=== PATIENT | male | born 2000 | race Caucasian/White ===

== ENCOUNTER 2022-04-22 09:27 | Emergency (ER) | payer MEDICAID ==
[~2022-04-22] VITALS: Ht 167.6 cm; Wt 66.0 kg
[~2022-04-22 09:27] MED LIST: ALBU108A5 IN; AZIT500T66 PO
[2022-04-22 10:14] LABS: Basophils # (auto) 0.1 10 ^3/uL (0-0.2); Basophils % (auto) 0.6 % (0.0-2.0); Eosinophils # (auto) 0 10 ^3/uL (0-0.8); Eosinophils % (auto) 0.2 % (0.0-7.0); Hematocrit 45.2 % (41.0-53.0); Hemoglobin 15.8 g/dL (13.5-17.5); Lymphocytes # (auto) 1.3 10 ^3/uL (0.4-5.4); Lymphocytes % (auto) 11.8 % (10.0-50.0); Mean Corpuscular Hemoglobin 30.3 pg (28.0-32.0); Mean Corpuscular Hgb Conc. 34.9 g/dL (32.0-36.0); Mean Corpuscular Volume 86.8 fL (80.0-100.0); Monocytes # (auto) 0.5 10 ^3/uL (0-1.3); Neutrophils % (auto) 82.4 % (37.0-80.0); Red Blood Cells 5.21 10^6/uL (4.5-5.90); White Blood Cell 10.9 10^3/uL (4.4-10.8)
[2022-04-22 10:34] LABS: Albumin 4.5 g/dL (3.4-5.0); BUN/Creatinine Ratio 9.8; Potassium 4.2 mmol/L (3.5-5.1)
[2022-04-22 10:36] LABS: Bilirubin, Total 0.3 mg/dL (0.2-1.0); Total Protein 7.5 g/dL (6.4-8.2)
[2022-04-22 12:15] VITALS: BP 126/75
[2022-04-22 12:51] LABS: Alcohol, Urine < 3.0 mg/dL (0-10); Cannabinoid Screen, Urine NEGATIVE (NEGATIVE)
[2022-04-22 12:59] LABS: Amphetamine Screen, Urine POSITIVE (NEGATIVE); Barbiturate Scree,Urine NEGATIVE (NEGATIVE); Benzodiazephine Screen, Urine NEGATIVE (NEGATIVE); Cocaine Screen, Urine NEGATIVE (NEGATIVE); Opiate Scree,Urine NEGATIVE (NEGATIVE); Phencyclidine Screen, Urine NEGATIVE (NEGATIVE)
== END 2022-04-22 12:17 | disposition home or self-care (01) ==
LOC: ER 09:27
DX: F15.10 Other stimulant abuse, uncomplicated (principal); F12.10 Cannabis abuse, uncomplicated; J45.909 Unspecified asthma, uncomplicated; Z79.2 Long term (current) use of antibiotics; Z79.899 Other long term (current) drug therapy
CPT/HCPCS: 36415; 80053; 80307; 84484; 85025; 93005

== ENCOUNTER 2022-05-17 00:21 | Emergency (ER) | payer MEDICAID ==
[~2022-05-17] VITALS: Ht 167.6 cm; Wt 65.9 kg
[2022-05-17 00:39] VITALS: BP 97/76
[2022-05-17 00:47] LABS: Basophils # (auto) 0.1 10 ^3/uL (0-0.2); Basophils % (auto) 0.6 % (0.0-2.0); Eosinophils # (auto) 0.1 10 ^3/uL (0-0.8); Eosinophils % (auto) 0.7 % (0.0-7.0); Hematocrit 42.8 % (41.0-53.0); Hemoglobin 15.5 g/dL (13.5-17.5); Lymphocytes % (auto) 14.6 % (10.0-50.0); Mean Corpuscular Hemoglobin 30.6 pg (28.0-32.0); Mean Corpuscular Hgb Conc. 36.1 g/dL (32.0-36.0); Mean Corpuscular Volume 84.6 fL (80.0-100.0); Monocytes % (auto) 7.3 % (0.0-12.0); Neutrophils # (auto) 10.3 10 ^3/uL (1.6-8.6); Neutrophils % (auto) 76.8 % (37.0-80.0); Nucleated Red Blood Cells % 0.1 %; Red Blood Cells 5.05 10^6/uL (4.5-5.90); Red Cell Distribution Width 13.1 % (11.8-14.3); White Blood Cell 13.5 10^3/uL (4.4-10.8)
[2022-05-17 01:02] LABS: Albumin 4.2 g/dL (3.4-5.0); BUN/Creatinine Ratio 16.7 (10.0-20.0); Calcium 9.6 mg/dL (8.5-10.1); Potassium 4.7 mmol/L (3.5-5.1)
[2022-05-17 01:05] LABS: Bilirubin, Total 0.5 mg/dL (0.2-1.0); Total Protein 7.4 g/dL (6.4-8.2)
== END 2022-05-17 03:36 | disposition home or self-care (01) ==
LOC: ER 00:21
DX: R07.89 Other chest pain (principal); F19.10 Other psychoactive substance abuse, uncomplicated; F12.10 Cannabis abuse, uncomplicated; F14.10 Cocaine abuse, uncomplicated
CPT/HCPCS: 36415; 71045; 80053; 83880; 84484; 85025; 93005

== ENCOUNTER 2022-05-27 12:05 | Emergency (ER) | payer MEDICAID ==
[~2022-05-27] VITALS: Ht 167.6 cm; Wt 67.5 kg
[2022-05-27 12:44] VITALS: BP 119/86
[2022-05-27 15:45] LABS: Basophils # (auto) 0.1 10 ^3/uL (0-0.2); Basophils % (auto) 1.1 % (0.0-2.0); Eosinophils # (auto) 0 10 ^3/uL (0-0.8); Eosinophils % (auto) 0.3 % (0.0-7.0); Hematocrit 46.3 % (41.0-53.0); Hemoglobin 16.4 g/dL (13.5-17.5); Lymphocytes # (auto) 1.7 10 ^3/uL (0.4-5.4); Lymphocytes % (auto) 21.9 % (10.0-50.0); Mean Corpuscular Hemoglobin 30.1 pg (28.0-32.0); Mean Corpuscular Hgb Conc. 35.4 g/dL (32.0-36.0); Monocytes # (auto) 0.6 10 ^3/uL (0-1.3); Neutrophils # (auto) 5.4 10 ^3/uL (1.6-8.6); Neutrophils % (auto) 68.7 % (37.0-80.0); Nucleated Red Blood Cells % 0.8 %; Red Blood Cells 5.45 10^6/uL (4.5-5.90); Red Cell Distribution Width 13.2 % (11.8-14.3); White Blood Cell 7.8 10^3/uL (4.4-10.8)
[2022-05-27 16:05] LABS: Potassium 4.1 mmol/L (3.5-5.1)
[2022-05-27 16:09] LABS: Albumin 4.5 g/dL (3.4-5.0); BUN/Creatinine Ratio 14.9 (10.0-20.0)
[2022-05-27 16:11] LABS: Bilirubin, Total 0.6 mg/dL (0.2-1.0); Total Protein 7.8 g/dL (6.4-8.2)
[2022-05-27] MEDS ORDERED: ACET-6 PO (16:47)
[2022-05-27] MEDS ORDERED: FAMO20TA10 PO (16:47)
== END 2022-05-27 16:48 | disposition home or self-care (01) ==
LOC: ER 12:05
DX: R51.9 Headache, unspecified (principal); B34.9 Viral infection, unspecified; F12.10 Cannabis abuse, uncomplicated; F14.10 Cocaine abuse, uncomplicated; J45.909 Unspecified asthma, uncomplicated
CPT/HCPCS: 36415; 71045; 80053; 84484; 85025

== ENCOUNTER 2022-05-30 12:05 | Emergency (ER) | payer MEDICAID ==
[~2022-05-30] VITALS: Ht 167.6 cm; Wt 66.4 kg
[~2022-05-30 12:05] MED LIST changes: +ACET-6 PO; +FAMO20TA10 PO
[2022-05-30 12:54] VITALS: BP 124/76
[2022-05-30] MEDS ORDERED: HYDR50CA PO (13:44)
== END 2022-05-30 13:45 | disposition home or self-care (01) ==
LOC: ER 12:05
DX: F41.1 Generalized anxiety disorder (principal); R00.2 Palpitations; F12.10 Cannabis abuse, uncomplicated; F14.10 Cocaine abuse, uncomplicated; J45.909 Unspecified asthma, uncomplicated; Z88.6 Allergy status to analgesic agent

== ENCOUNTER 2023-08-12 09:45 | Emergency (ER) | payer MEDICAID ==
[~2023-08-12] VITALS: Ht 170.2 cm; Wt 80.0 kg
[~2023-08-12 09:45] MED LIST changes: +HYDR50CA PO
[2023-08-12 10:00] LABS: Basophils # (auto) 0.1 10 ^3/uL (0-0.2); Basophils % (auto) 0.9 % (0.0-2.0); Eosinophils # (auto) 0.1 10 ^3/uL (0-0.8); Eosinophils % (auto) 0.8 % (0.0-7.0); Hematocrit 45.1 % (41.0-53.0); Hemoglobin 15.5 g/dL (13.5-17.5); Lymphocytes # (auto) 2.9 10 ^3/uL (0.4-5.4); Lymphocytes % (auto) 21.6 % (10.0-50.0); Mean Corpuscular Hemoglobin 29.3 pg (28.0-32.0); Mean Corpuscular Hgb Conc. 34.4 g/dL (32.0-36.0); Mean Corpuscular Volume 85.1 fL (80.0-100.0); Monocytes # (auto) 0.9 10 ^3/uL (0-1.3); Monocytes % (auto) 6.8 % (0.0-12.0); Neutrophils # (auto) 9.4 10 ^3/uL (1.6-8.6); Neutrophils % (auto) 69.9 % (37.0-80.0); Nucleated Red Blood Cells % 0.1 %; Red Cell Distribution Width 13.1 % (11.8-14.3); White Blood Cell 13.4 10^3/uL (4.4-10.8)
[2023-08-12 10:36] LABS: Alanine Aminotransferase 46 U/L (7-40); Alkaline Phosphatase 72 U/L (46-116); Anion Gap 7 (5-15); Aspartate Aminotransferase 28 U/L (13-40); BUN/Creatinine Ratio 11.3 (10.0-20.0); Blood Urea Nitrogen 12 mg/dL (9-23); Calcium 9.9 mg/dL (8.5-10.1); Carbon Dioxide 24 mmol/L (20-30); Chloride 107 mmol/L (98-107); Glucose 95 mg/dL (74-106); Potassium 3.8 mmol/L (3.5-5.1); Sodium 138 mmol/L (136-145)
[2023-08-12 10:37] LABS: Albumin 4.8 g/dL (3.2-4.8); Bilirubin, Total 0.4 mg/dL (0.2-1.0); Total Protein 7.2 g/dL (5.7-8.2)
[2023-08-12 12:58] LABS: Urine Bacteria None Seen /hpf (None Seen)
[2023-08-12 13:21] LABS: Urine Blood Negative /uL (Negative); Urine Clarity Clear (Clear); Urine Color Yellow (Yellow); Urine Mucus FEW (None Seen); Urine Protein, UAD TRACE (Negative); Urine Specific Gravity 1.035 (1.001-1.035); Urine Urobilinogen Normal (Negative); Urine WBC <1 /hpf (0 - 3)
[2023-08-12 13:32] LABS: Amphetamine Screen, Urine Neg (NEGATIVE); Barbiturate Scree,Urine Neg (NEGATIVE); Benzodiazephine Screen, Urine Neg (NEGATIVE); Cannabinoid Screen, Urine Neg (NEGATIVE); Cocaine Screen, Urine Neg (NEGATIVE); Opiate Scree,Urine Neg (NEGATIVE); Phencyclidine Screen, Urine Neg (NEGATIVE)
[2023-08-12] MEDS: ALBUTEROL SULF 2.5 MG/0.5ML(0.5%) NEB SOLN HHN ONE (14:57)
[2023-08-12] MEDS: IPRATROPIUM BROM 0.5 MG/2.5ML INH SOL HHN ONE (14:58)
[2023-08-12] MEDS: predniSONE 20 MG TAB PO ONE (15:02)
[2023-08-12 15:26] VITALS: PULSE 88; RESP 14; O2SAT 97
[2023-08-12 15:27] VITALS: BP 125/73; TEMP 97.6
[2023-08-12] MEDS ORDERED: PRED20TA2 PO (15:29)
[2023-08-12] MEDS ORDERED: ALBU108A5 IN (15:29)
[2023-08-12 15:41] VITALS: PULSE 66; RESP 16; O2SAT 98
== END 2023-08-12 15:44 | disposition home or self-care (01) ==
LOC: ER 09:45
DX: J20.9 Acute bronchitis, unspecified (principal); J45.909 Unspecified asthma, uncomplicated; F12.10 Cannabis abuse, uncomplicated
CPT/HCPCS: 36415; 71045; 80053; 80307; 81001; 84484; 85025; 93005; 94640; 99285; J7512; J7644